=== PATIENT | female | born 1955 | race Caucasian/White ===

== ENCOUNTER 2018-07-11 12:39 | Day surgery (SDC) | payer OTHER ==
[2018-07-11] MEDS ORDERED: LR 1,000 ML IV ONE (13:14)
--- NOTE | 2018-07-11 13:54 | PDANEPAE ---
ANE Past Medical History - Cardiovascular History Hx Hypertension: No Hx Arrhythmias: No Hx Chest Pain: No Hx Coronary Artery / Peripheral Vascular Disease: No Hx CHF / Valvular Disease: No Hx Palpitations: No - Pulmonary History Hx COPD: No Hx Asthma/Reactive Airway Disease: No Hx Recent Upper Respiratory Infection: No Hx Oxygen in Use at Home: No Hx Sleep Apnea: No Sleep Apnea Screening Result - Last Documented: Negative - Neurologic History Hx Cerebrovascular Accident: No Hx Seizures: No Hx Dementia: No - Endocrine History Hx Diabetes: No Endocrine History Comment: HYPOTHYROID - Renal History Hx Renal Disorders: No - Liver History Hx Hepatic Disorders: No - Neurological & Psychiatric Hx Hx Neurological and Psychiatric Disorders: No Neurological / Psychiatric History Comment: DEPRESSION - Cancer History Hx Cancer: Yes Cancer History Comment: BASAL CELLS - Congenital Disorder History Hx Congenital Disorders: No - GI History Hx Gastrointestinal Disorders: No Gastrointestinal History Comment: GLUTEN FREE - Other Health History Other Health History: NEG - Chronic Pain History Chronic Pain: No - Surgical History Prior Surgeries: X2. TMJ SURGERY. THUMB SURG. COLONOSCOPIES. ENDOSCOPIES ANE Review of Systems Review of Systems: - Exercise capacity METS (RN): 5 METS ANE Patient History - Allergies Allergies/Adverse Reactions: morphine Allergy (Verified 06/23/18 11:03) ITCHY - Home Medications Home Medications: [place] Thyroid 06/23/18 [Last Taken 07/11/18] Cymbalta 06/23/18 [Last Taken 07/11/18] Estrogens,Conjugated 06/23/18 [Last Taken 07/11/18] Fish Oil [place]-3 Softgel 06/23/18 [Last Taken 07/04/18] Multivitamin (*) 06/23/18 [Last Taken 07/04/18] Progesterone 06/23/18 [Last Taken 07/10/18] Trazodone HCl 06/23/18 [Last Taken 07/10/18] Wellbutrin Sr 06/23/18 [Last Taken 07/10/18] - NPO status NPO Since - Liquids (Date): 07/11/18 NPO Since - Liquids (Time): 09:00 NPO Since - Solids (Date): 07/10/18 NPO Since - Solids (Time): 20:00 - Smoking Hx Smoking Status: Former smoker - Family Anes Hx Family Hx Anesthesia Complications: NEG ANE Labs/Vital Signs - Vital Signs Blood Pressure: 142/99 Heart Rate: 696 Respiratory Rate: 20 O2 Sat (%): 95 Height: 165.1 cm Weight: 61.235 kg ANE Physical Exam - Airway Neck exam: FROM Mallampati Score: Class 2 Mouth exam: normal dental/mouth exam - Pulmonary Pulmonary: no respiratory distress - Cardiovascular Cardiovascular: regular rate and rhythym - ASA Status ASA Status: II ANE Anesthesia Plan Anesthesia Plan: general endotracheal anesthesia
[2018-07-11] MEDS ORDERED: MIDAZOLAM 2 MG/2 ML VIAL ONE (14:02)
[2018-07-11] MEDS ORDERED: PROPOFOL/EMULSION 500 MG/50 ML BOTTLE IV ONE (14:02)
[2018-07-11] MEDS ORDERED: fentaNYL 100 MCG/2 ML INJ ONE (14:02)
[2018-07-11] MEDS ORDERED: PROPOFOL 200 MG/20 ML VIAL ONE (14:02)
--- NOTE | 2018-07-11 14:05 | PDGENHP ---
History & Physical Chief Complaint: family hx panc ca History of Present Illness: 63 year old female with extensive family hx of panc ca presents for EUS surveillance Pertinent Past, Social, Family History: PMHx; hypothyroid, dep. SoHx; former smoker Relevant Physical Exam: HEENT: anicterc. Cv: RRR +s1s2. lungs: CTAB. Abd: soft, nt, + bs Cardiorespiratory Assessment: ASA 2
[2018-07-11] MEDS ORDERED: INDOMETHACIN 50 MG SUPP PR PRN (14:07)
[2018-07-11] MEDS ORDERED: NS 500 ML IV SCH (14:15)
[2018-07-11] MEDS ORDERED: ONDANSETRON 4 MG/2 ML VIAL IVP PRN (14:48)
[2018-07-11] MEDS ORDERED: ALBUTEROL 3 ML DEYVIAL IH PRN (14:48)
[2018-07-11] MEDS ORDERED: NALOXONE HCL 0.4 MG/ML INJ IVP PRN (14:48)
--- NOTE | 2018-07-11 15:09 | POSTANESTH ---
Post Anesthetic Evaluation Cardiovascular Status: Similar to Pre-Op Cond Respiratory Status: Similar to Pre-op Cond. Level of Consciousness/Mental Status: Mildly Sleepy, Arousable Pain Control: Adequate, Prn Tx Ordered Nausea/Vomiting Control: Adequate, Prn Tx Ordered Complications Possibly Related to Anesthesia: None Noted
--- NOTE | 2018-07-11 15:33 | GIREPORT ---
[facility] - Endoscopy Department Patient Name: Harish Owens Procedure Date: 07/11/2018 2:04 PM Patient Type: Outpatient Attending MD/ ER Physician: Clemente Hicks MD Procedure: Upper EUS Indications: Screening for solid pancreatic neoplasm Patient Profile: 63 year old male with multiple 1st degree relatives with pancreatic can cer presents for EUS screening. Providers: Clemente Hicks MD Medicines: Monitored Anesthesia Care Complications: No immediate complications. Estimated blood loss: Minimal. Description of Procedure: After obtaining informed consent, the endoscope was passed under direct vision. Throughout the procedure, the patient's blood pressure, pulse, and oxygen saturations were monitored continuously. The Endosonoscope was introduced through the mouth, and advanced to the second part of duoden um. The Endoscope was introduced through the mouth, and advanced to the sec ond part of duodenum. The esophagus, stomach, and duodenum were visualized endosonographically. The upper EUS was accomplished without difficulty. The patient tolerated the procedure well. Findings: Endoscopic Finding : The Z-line was irregular. Biopsies were taken with a cold forceps for histology. Patchy mildly erythematous mucosa was found in the gastric body and in the gastric antrum. Biopsies were taken with a cold forceps for histology. The examined duodenum was normal. Endosonographic Finding : There was no sign of significant endosonographic abnormality in the visualized portion of the liver. No masses were identified. There was no sign of significant endosonographic abnormality in the com mon bile duct and in the gallbladder. No lymphadenopathy seen. Pancreatic parenchymal abnormalities were noted in the entire pancreas. These consisted of hyperechoic foci. The pancreatic duct had a prominently branched endosonographic appearan ce and had hyperechoic chatman in the entire pancreas. Estimated Blood Loss: Estimated blood loss was minimal. Post Op Diagnosis: - Z-line irregular. Biopsied. - Erythematous mucosa in the gastric body and antrum. Biopsied. - Normal examined duodenum. - There was no evidence of significant pathology in the visualized port ion of the liver. - There was no sign of significant pathology in the common bile duct an d in the gallbladder. - Pancreatic parenchymal abnormalities consisting of hyperechoic foci w ere noted in the entire pancreas. - The pancreatic duct had a prominently branched endosonographic appear ance and had hyperechoic chatman in the entire pancreas. - Etiology? No mass seen. Recommendation: - Discharge patient to home (with escort). - Advance diet as tolerated. - Continue present medications. - Await pathology results. - Repeat EUS in 2 years - THank you for allowing me to participate in the care of your patient. Attending Participation: I personally performed the entire procedure. Clemente Hicks MD Clemente Hicks MD 07/11/2018 3:33:30 PM This report has been signed electronicallyClemente Hicks MD Number of Addenda: 0 Note Initiated On: 07/11/2018 2:04 PM [email or web address]
[2018-07-11 15:47] VITALS: BP 150/79
== END 2018-07-11 16:00 | disposition home or self-care (01) ==
LOC: FSGY 12:39
PROVIDERS: ATTEND Internal Medicine Gastroenterology
DX: Z12.89 Encounter for screening for malignant neoplasm of other sites (principal); K29.70 Gastritis, unspecified, without bleeding; E03.9 Hypothyroidism, unspecified; F32.9 Major depressive disorder, single episode, unspecified; Z80.0 Family history of malignant neoplasm of digestive organs; Z87.891 Personal history of nicotine dependence
CPT/HCPCS: J2250; J2704; J3010